=== PATIENT | male | born 1955 | race Asian ===

== ENCOUNTER 2016-09-23 19:04 | Emergency (ER) | payer OTHER ==
[2016-09-23] MEDS ORDERED: Acetaminophen TAB* 325 MG PO ONE (20:17)
[2016-09-23] MEDS ORDERED: NS 0.9% 1000 ML* 1,000 ML IV ONE (20:18)
[2016-09-23 20:45] LABS: Urine Bacteria Absent (Absent); Urine Bilirubin Negative (Negative); Urine Glucose Negative (Negative); Urine Nitrite Negative (Negative)
[2016-09-23 20:49] LABS: Hematocrit 37 % (42-52); Mean Corpuscular HGB Conc 35 g/dl (31-36); Mean Corpuscular Hemoglobin 34 pg (27-31); Mean Corpuscular Volume 96 fL (80-94); Mean Platelet Volume 7 um3 (7.4-10.4); Red Blood Count 3.87 10^6/ul (4.0-5.4); Red Cell Distribution Width 14 % (10.5-15); White Blood Count 5.9 10^3/ul (3.5-10.8)
[2016-09-23 21:05] LABS: Albumin 4.5 g/dL (3.2-5.2); BUN/Creatinine Ratio 13.8 (8-20); Calcium 10.1 mg/dL (8.6-10.3); EGFR African American 115.1 (>60); EGFR Non-African American 89.5 (>60); Globulin 3.2 g/dL (2-4); Potassium 3.9 mmol/L (3.5-5.0); Total Bilirubin 1.1 mg/dL (0.2-1.0); Total Protein 7.7 g/dL (6.4-8.9)
--- NOTE | 2016-09-23 21:09 | RAD ---
Indication: Cough. 2 views of the chest including dual energy PA views demonstrate no mediastinal shift. Heart is of normal size and configuration. Lung sanchez appear clear. IMPRESSION: No active cardiopulmonary disease is noted.
[2016-09-23] MEDS ORDERED: Azithromycin TAB* 250 MG PO ONE (22:13)
[2016-09-23] MEDS ORDERED: Ibuprofen TAB* 600 MG PO ONE (22:13)
--- NOTE | 2016-09-23 22:52 | ED ---
Destiny Bautista Salem, scribed for Carson Mckinnon on 09/23/16 at 2011 . Complex/Multi-Sys Presentation - HPI Summary HPI Summary: Patient is a 61 y/o male who presents to the ED with general malaise for 1 week. He reports SOB, dizziness, chest congestion, nausea, and pressure behind his ear since earlier today. He also reports fluctuating blood pressure and a cough that is productive with yellow sputum. He denies a pedal edema or PMHx of CAD. Pt reports renal calculi in April 2016. He is a former smoker, but denies COPD. - History Of Current Complaint Chief Complaint: EDUpperRespComplaint Time Seen by Provider: 09/23/16 19:55 Hx Obtained From: Patient Onset/Duration: Gradual Onset, Lasting Days Severity Currently: Moderate Severity Initially: Moderate Associated Signs And Symptoms: Positive: Dizziness, SOB, Cough, Nausea, Other - Chest congestion. Pressure behind his ear. - Allergies/Home Medications Allergies/Adverse Reactions: Allergies Allergy/AdvReac Type Severity Reaction Status Date / Time No Known Allergies Allergy Verified 09/23/16 19:22 PMH/Surg Hx/FS Hx/Imm Hx Respiratory History: Denies: Hx Chronic Obstructive Pulmonary Disease (COPD) Infectious Disease History: No Infectious Disease History: Denies: Traveled Outside the [place] in Last 30 Days - Family History Known Family History: Positive: Hypertension - Social History Alcohol Use: None Hx Substance Use: No Substance Use Type: Reports: None Hx Tobacco Use: Yes Smoking Status (MU): Former Smoker Review of Systems Positive: Shortness Of Breath, Cough Positive: Nausea Neurological: Other - Dizziness. All Other Systems Reviewed And Are Negative: Yes Physical Exam Triage Information Reviewed: Yes Vital Signs On Initial Exam: Initial Vitals Temp Pulse Resp BP Pulse Ox 98.9 F 93 16 138/68 97 09/23/16 19:05 09/23/16 19:05 09/23/16 19:05 09/23/16 19:05 09/23/16 19:05 Vital Signs Reviewed: Yes Appearance: Positive: Well-Appearing, No Pain Distress Skin: Positive: Warm, Skin Color Reflects Adequate Perfusion, Dry Head/Face: Positive: Normal Head/Face Inspection Eyes: Positive: EOMI, KADEEM Neck: Positive: Supple, Nontender Respiratory/Lung Sounds: Positive: Clear to Auscultation, Breath Sounds Present Cardiovascular: Positive: RRR, Pulses are Symmetrical in both Upper and Lower Extremities Abdomen Description: Positive: Nontender, Soft Bowel Sounds: Positive: Present Musculoskeletal: Positive: Normal, Strength/ROM Intact Neurological: Positive: Normal, Sensory/Motor Intact, Alert, Oriented to Person Place, Time Diagnostics - Vital Signs Vital Signs Temp Pulse Resp BP Pulse Ox 09/23/16 19:05 98.9 F 93 16 138/68 97 - Laboratory Result Diagrams: 09/23/16 20:41 09/23/16 20:41 Lab Statement: Any lab studies that have been ordered have been reviewed, and results considered in the medical decision making process. - Radiology CXR Radiology Interpretation Completed By: Radiologist - IMPRESSION: No active cardiopulmonary disease is noted. Re-Evaluation - Re-Evaluation First Eval Re-Evaluation Time: 22:13 Change: Improved Comment: Discussed results with pt and will prescribe Abx. He is agreeable to plan. Complex Multi-Symp Course/Dx - Diagnoses Provider Diagnoses: URI (upper respiratory infection), Bronchitis Discharge - Discharge Plan Condition: Stable Disposition: HOME Prescriptions: Azithromycin TAB* [Zithromax TAB (Z-TYLOR) 250 mg #6 tabs] 250 mg PO DAILY #4 tab Ibuprofen TAB* [Motrin TAB* 600 MG] 600 mg PO Q8H PRN #20 tab PRN Reason: Pain Patient Education Materials: Ibuprofen (By mouth), Azithromycin (By mouth), Upper Respiratory Infection (ED), Acute Bronchitis (ED) Referrals: Peter White MD [Primary Care Provider] - Additional Instructions: Follow up with PCP in 3 days. The documentation as recorded by the Destiny francis Salem accurately reflects the service I personally performed and the decisions made by Pratibha craig Emmanuel.
[2016-09-23 22:56] VITALS: BP 120/73
== END 2016-09-23 22:55 | disposition home or self-care (01) ==
LOC: ED 19:04
DX: J06.9 Acute upper respiratory infection, unspecified (principal); J40 Bronchitis, not specified as acute or chronic; Z87.891 Personal history of nicotine dependence
CPT/HCPCS: 36415; 71020; 80053; 81003; 81015; 83605; 83880; 84484; 85025; 85610; 85730; 87502; 93005; 96360; 99283; A9270-GY

== ENCOUNTER 2019-10-04 23:35 | Emergency (ER) | payer OTHER ==
--- OUTSIDE RECORDS SUMMARY | 2019-10-04 23:46 | XMS REPORT | Continuity of Care Document ---
:1955 External Reference #:[id number] Author Name Dewayne Allen, DO FAC (transmitted by agent of provider Rosy Coffey) Address [address] [place] [address] Care Team Providers Name Role Phone Libby Rosado MD - Pulmonary Care Team Information Assistant County Engineer Disease Yevgeniy Uribe MD - Cardiovascular Care Team Information Assistant County Engineer Disease Patient's Choice Care Team Information Assistant County Engineer Unavailable Problems Active Problems Provider Date Solitary nodule of lung ePter White M.D. Onset: 10/06/2015 Primary insomnia Peter White M.D. Onset: 10/06/2015 Disturbance in sleep behavior Libby Rosado MD Onset: 03/07/2016 Insomnia Peter White M.D. Onset: 03/08/2016 Ureteric stone Peter White M.D. Onset: 09/09/2016 Obstructive sleep apnea syndrome Peter White M.D. Onset: 09/09/2016 Chest pain Peter White M.D. Onset: 09/09/2016 Social History Type Date Description Comments Sex Unknown ETOH Use Denies alcohol use Recreational Drug Use Denies Drug Use Tobacco Use Start: Unknown Patient is a former End: Unknown smoker Tobacco Use Start: Unknown Light tobacco smoker for 15 yrs almost 10 (10 or fewer cigarettesa day, quit cigarettes/day) in 2009 for the second time Exercise Type/Frequency Exercises regularly Exercise Type/Frequency Walks daily 30 minutes Allergies, Adverse Reactions, Alerts Description No Known Drug Allergies Medications Active Medications SIG Qnty Indications Ordering Date Provider Metoprolol Tartrate 1 by mouth twice a 60tabs R00.0 Dewaynetavares Kenneyno, 10/01 day DO FACC 25mg Tablets Fish Oil not taking1 by Unknown 03/06/2016 1000mg mouth everyother Capsules day Vitamin C 1 tablet once or Unknown 1000mg twice per week. Tablets Calcium 500+D 1 by mouth once a Unknown day [id number] Tablets Mens Multivitamin Unknown Plus Tablets Immunizations Description No Information Available Vital Signs Date Vital Result Comment 10/02/2019 11:33am BP Systolic Sitting 130 mmHg Rue 110/80 hr 86 BP Diastolic Sitting 80 mmHg Rue 110/80 hr 86 BP Systolic Standing 120 mmHg Rue 110/80 hr 100 BP Diastolic Standing 72 mmHg Rue 110/80 hr 100 BP Systolic Lying Down 110 mmHg hr 112 BP Diastolic Lying Down 80 mmHg hr 112 O2 % BldC Oximetry 97 % at room air 09/30/2016 2:39pm Weight 145.12 lb Heart Rate 77 /min BP Systolic Sitting 106 mmHg BP Diastolic Sitting 66 mmHg Body Temperature 97.2 F O2 % BldC Oximetry 98 % Results Test Acquired Date Facility Test Result H/L Range Note Basic Metabolic 10/02/2019 [facility] Sodium 140 mmol/L Normal 135-[address] [place] [address] [phone] Potassium 3.9 mmol/L Normal 3.5-5.0 Chloride 108 mmol/L Normal 101-111 Co2 Carbon Dioxide 25 mmol/L Normal 22-32 Anion Gap 7 mmol/L Normal 2-11 Glucose 97 mg/dL Normal 70-100 Blood Urea Nitrogen 13 mg/dL Normal 6-24 Creatinine 0.81 mg/dL Normal 0.67-1.17 BUN/Creatinine Ratio 16.0 Normal 8-20 Calcium 9.6 mg/dL Normal 8.6-10.3 Egfr Non- 96.2 >60 Egfr 116.5 >60 1 CBC Auto 10/02/2019 [facility] White Blood 5.3 10^3/uL Normal 3.5-10.[address] [place] [address] [phone] Red Blood Count 3.83 10^6/uL Low 4.18-5.48 Hemoglobin 13.6 g/dL Low 14.0-18.0 Hematocrit 38 % Low 42-52 Mean Corpuscular Volume 99 fL High 80-94 Mean Corpuscular Hemoglobin 36 pg High 27-31 Mean Corpuscular HGB Conc 36 g/dL Normal 31-36 Red Cell Distribution Width 15 % Normal 10-15 Platelet Count 294 10^3/uL Normal 150-450 Mean Platelet Volume 6.8 fL Low 7.4-10.4 Abs Neutrophils 3.3 10^3/uL Normal 1.5-7.7 Abs Lymphocytes 1.6 10^3/uL Normal 1.0-4.8 Abs Monocytes 0.3 10^3/uL Normal 0-0.8 Abs Eosinophils 0.1 10^3/uL Normal 0-0.6 Abs Basophils 0.0 10^3/uL Normal 0-0.2 Abs Nucleated RBC 0.0 10^3/uL Granulocyte % 62.6 % Lymphocyte % 30.0 % Monocyte % 6.0 % Eosinophil % 1.0 % Basophil % 0.4 % Nucleated Red Blood Cells % 0.2 1 Because ethnic data is not always readily available, this report includes an eGFR for both -Americans and non- Americans. The National Kidney Disease Education Program (NKDEP) does not endorse the use of the MDRD equation for patients that are not between the ages of 18 and 70, are , have extremes of body size, muscle mass, or nutritional status, or are non- or non-. According to the National Kidney Foundation, irrespective of diagnosis, the stage of the disease is based on the level of kidney function: Stage Description GFR(mL/min/1.73 m(2)) 1 Kidney damage with normal or decreased GFR 90 2 Kidney damage with mild decrease in GFR 60-89 3 Moderate decrease in GFR 30-59 4 Severe decrease in GFR 15-29 5 Kidney failure <15 (or dialysis) Procedures Date Code Description Status 10/02/2019 54995 EKG Tracing & Interpretation Completed 10/20/2015 72941201 Colonoscopy Completed Medical Devices Description No Information Available Encounters Type Date Location Provider Dx Diagnosis Office Visit 10/02/2019 [facility] Dewayne Allen, R00.0 Tachycardia, 11:00a Of [employer] Escort DO FACC unspecified I63.9 Cerebral infarction, unspecified R42 Dizziness and giddiness G47.33 Obstructive sleep apnea (adult) (pediatric) R03.0 Elevated blood-pressure reading, w/o diagnosis of htn F17.201 Nicotine dependence, unspecified, in remission Assessments Date Code Description Provider 10/02/2019 R00.0 Tachycardia, unspecified Dewayne Allen, DO [facility] 10/02/2019 I63.9 Cerebral infarction, unspecified Dewayne Allen DO FACC 10/02/2019 R42 Dizziness and giddiness Dewayne Allen DO FAC 10/02/2019 G47.33 Obstructive sleep apnea (adult) Dewayne Allen DO [facility] (pediatric) 10/02/2019 R03.0 Elevated blood-pressure reading, without Dewayne Allen DO [facility] diagnosis of hypertension 10/02/2019 F17.201 Nicotine dependence, unspecified, in Dewayne Allen, DO [facility] remission Plan of Treatment Future Appointment(s):10/10/2019 2:30 pm - [facility]2019 2:40 pm - [facility]/11/2019 1:30 pm - Nurse Visit IC [facility]10/11/2019 1 :00 pm - Ica ECHO Schedule [facility]10/02/2019 - [facility] Tachycardia, unspecifiedNew Medication:Metoprolol Tartrate 25 mg - 1 by mouth twice a dayNew Orders:Holter Monitor, Scheduled: Echocardiogram, Ordered: 10/02/19Referral:Julio Cesar Shen III, MD, Internal MedicineFollow up:Try to set up a PCP appointment with Dr. Shen (or other [facility] IM doctor if not available) schedule studies samantha f/u after [id number] Cerebral infarction, [id number] Dizziness and uclqcrgydE87.33 Obstructive sleep apnea (adult) (pediatric)R03.0 Elevated blood-pressure reading, without diagnosis of juroihiztzcaB29.201 Nicotine dependence, unspecified, in remission Functional Status Description No Information Available Mental Status Description No Information Available Referrals Refer to Dr Reason for Referral Status Appt Date Julio Cesar Shen III, MD consider taking patient as PCP Sent [address] [place] [id number] [phone]
--- OUTSIDE RECORDS SUMMARY | 2019-10-04 23:46 | XMS REPORT | Continuity of Care Document ---
:1955 External Reference #:[id number] Author Name Dewayne Allen, DO FAC Address [address] [place] [address] Care Team Providers Name Role Phone Libby Rosado MD - Pulmonary Care Team Information Bariatric Coordinator [phone] Disease Yevgeniy Uribe MD - Cardiovascular Care Team Information Bariatric Coordinator Disease Patient's Choice Care Team Information Bariatric Coordinator Unavailable Problems Active Problems Provider Date Solitary nodule of lung Peter White M.D. Onset: 10/06/2015 Primary insomnia Peter [...] 1 by mouth twice a 60tabs R00.0 Dewayne Allen, 10/01 day DO FACC 25mg Tablets Fish Oil not taking1 by Unknown 03/06/2016 1000mg mouth everyother Capsules day Vitamin C 1 tablet once or Unknown 1000mg twice per week. Tablets Calcium 500+D 1 by mouth once a Unknown day [id number] Tablets Mens Multivitamin Unknown Plus Tablets Immunizations [...] O2 % BldC Oximetry 98 % Results Description No Information Available Procedures Date Code Description Status 10/02/2019 12921 EKG Tracing & Interpretation Completed 10/20/2015 [id number] Colonoscopy Completed Medical Devices Description No Information Available Encounters Description No Information Available Assessments Date Code Description Provider 10/02/2019 I10 Essential (primary) hypertension Dewayne Allen, DO [facility] 10/02/2019 R00.0 Tachycardia, unspecified Dewayne Allen, DO [facility] 10/02/2019 I63.9 Cerebral infarction, unspecified Dewayne Allen, DO [facility] 10/02/2019 R42 Dizziness and giddiness Dewayne Allen DO [facility] Plan of Treatment 10/02/2019 - Dewayne Allen, DO [facility]10 Essential (primary) hypertensionNew Orders:Echocardiogram, Ordered: 10/02/19Referral:Julio Cesar Shen III, MD, Internal MedicineFollow up:Try to set up a PCP appointment with Dr. Shen (or other [facility] IM doctor if not available) schedule studies samantha f/u after dblstktP24.0 Tachycardia, unspecifiedNew Medication:Metoprolol Tartrate 25 mg - 1 by mouth twice a dayNew Orders:Holter Monitor, Ordered: 10/02/19I63.9 Cerebral infarction, unspecifiedNew Xrays:CT Brain Wo, Ordered: 10/02/19R42 Dizziness and giddinessNew Labs:Basic Metabolic Panel, Ordered: 10/02/19CBC Auto Diff, Ordered: 10/02/19 Functional Status Description No Information Available Mental Status Description No Information Available Referrals Refer to Dr Reason for Referral Status Appt Date Julio Cesar Shen III, MD consider taking patient as PCP Created [address] [place] [id number] [phone]
[2019-10-05 00:22] VITALS: BP 140/93
--- NOTE | 2019-10-05 00:23 | ED ---
Hypertension - HPI Summary HPI Summary: This patient is a 64 year old M presenting to [facility] with a chief complaint of high blood pressure since three weeks ago. Pt has a blood pressure monitor but does not have diagnosed HTN. Pt has FHx of high blood pressure. On 09/16/19 pt felt very hot, lightheaded and discomfort in the chain. This lasted for two hour. When he measured his blood pressure it was very high. Pt took his wifes blood pressure medication from [facility] and the symptoms were resolved. Then on 09/29 the same thing occurred again and he took his wives medication again. Both times pt did not pass out. Then pt went to doctors and was placed on medication and his heart rate was reduced. Then at 1900 on 10/04/19 he was sitting down and he felt like his heart was beating rapidly. Pt has PMHx of vertigo 4-5 years ago and the cases lasted for 2-3 days. Patient denies chest pain, diaphoresis, and SOB. Pt has no history of heart problems or breathing problems as an adult. Pt quit smoking 20 years ago. Home Medications Medication Instructions Recorded Confirmed Type Azithromycin TAB* [Zithromax TAB 250 mg PO DAILY #4 tab 09/23/16 Rx (Z-TYLOR) 250 mg #6 tabs] Ibuprofen TAB* [Motrin TAB* 600 MG] 600 mg PO Q8H PRN #20 tab 09/23/16 Rx - History of Current Complaint Chief Complaint: EDHypertension Stated Complaint: HIGH BP/FAST HR PER PT Time Seen by Provider: 10/05/19 00:09 Hx Obtained From: Patient Onset/Duration: Started Hours Ago Timing: Intermittent, Lasting Hours Aggravating Factor(s): Nothing Alleviating Factor(s): Nothing Associated Signs & Symptoms: Dizziness, SOB - Allergies/Home Medications Allergies/Adverse Reactions: Allergies Allergy/AdvReac Type Severity Reaction Status Date / Time No Known Allergies Allergy Verified 09/23/16 19:22 Home Medications: Home Medications Azithromycin TAB* [Zithromax TAB (Z-TYLOR) 250 mg #6 tabs] 250 mg PO DAILY #4 tab 09/23/16 [Rx] Ibuprofen TAB* [Motrin TAB* 600 MG] 600 mg PO Q8H PRN #20 tab 09/23/16 [Rx] PMH/Surg Hx/FS Hx/Imm Hx Respiratory History: Denies: Hx Chronic Obstructive Pulmonary Disease (COPD) EENT History: Denies: Hx Deafness Infectious Disease History: No Infectious Disease History: Denies: Traveled Outside the [place] in Last 30 Days - Family History Known Family History: Positive: Hypertension - Social History Occupation: Employed Full-time Alcohol Use: None Hx Substance Use: No Substance Use Type: Reports: None Hx Tobacco Use: Yes Smoking Status (MU): Former Smoker Review of Systems Negative: Skin Diaphoresis Negative: Chest Pain Negative: Shortness Of Breath Neurological/Mental Status: Other - dizziness Negative: Syncope All Other Systems Reviewed And Are Negative: Yes Physical Exam - Summary Physical Exam Summary: Appearance: Well-appearing, Well-nourished, lying in bed comfortably Skin: Warm, dry, no obvious rash Eyes: sclera anicteric, no conjunctival pallor HENT: mucous membranes moist, pharynx appears normal Neck: Supple, nontender Respiratory: Clear to auscultation, no signs of respiratory distress Cardiovascular: Normal S1, S2. No murmurs. Normal distal pulses in tibial and radial bilaterally. Abdomen: Soft, nontender, normal active bowel sounds present Musculoskeletal: Normal, Strength/ROM Intact Neurological: A&Ox3, awake and alert, mentation is normal, speech is fluent and appropriate Psychiatric: affect is normal, does not appear anxious or depressed Triage Information Reviewed: Yes Vital Signs On Initial Exam: Initial Vitals Temp Pulse Resp BP Pulse Ox 98.3 F 92 20 168/92 97 10/04/19 23:36 10/04/19 23:36 10/04/19 23:36 10/04/19 23:36 10/04/19 23:36 Vital Signs Reviewed: Yes Procedures - Sedation Patient Received Moderate/Deep Sedation with Procedure: No Diagnostics - Vital Signs Vital Signs Temp Pulse Resp BP Pulse Ox 10/04/19 23:36 98.3 F 92 20 168/92 97 - Laboratory Lab Statement: Any lab studies that have been ordered have been reviewed, and results considered in the medical decision making process. - EKG 23:59 Cardiac Rate: NL EKG Rhythm: Sinus Rhythm Summary of EKG Findings: An EKG reveals NSR at 94 BPM, P waves, QRS complex, and T waves are within normal limits, T waves and intervals are normal, no ischemic changes. This is a normal EKG. This EKG was reviewed and interpreted by an ED Physician. Re-Evaluation - Re-Evaluation First Eval Re-Evaluation Time: 00:35 Comment: Discussed results and plan of care with pt. Hypertension Course/Dx - Course Course Of Treatment: This patient is a 64 year old M presenting to [facility] with a chief complaint of high blood pressure since three weeks ago. Pt has a blood pressure monitor but does not have diagnosed HTN. Pt has FHx of high blood pressure. On 09/16/19 pt felt very hot, lightheaded and discomfort in the chain. This lasted for two hour. When he measured his blood pressure it was very high. Pt took his wifes blood pressure medication from [facility] and the symptoms were resolved. Then on 09/30/19 the same thing occurred again and he took his wives medication again. Both times pt did not pass out. Then pt went to doctors and was placed on medication and his heart rate was reduced. Then at 1900 on 10/04/19 he was sitting down and he felt like his heart was beating rapidly. Pt has PMHx of vertigo 4-5 years ago and the cases lasted for 2-3 days. Patient denies chest pain, diaphoresis, and SOB. Pt has no history of heart problems or breathing problems as an adult. Pt quit smoking 20 years ago. Physical Exam Findings are normal. An EKG reveals NSR at 94 BPM, P waves, QRS complex, and T waves are within normal limits, T waves and intervals are normal, no ischemic changes. This is a normal EKG. This EKG was reviewed and interpreted by an ED Physician. The patient is agreeable with discharge. - Diagnoses Provider Diagnoses: Near syncope, Palpitations Discharge ED - Sign-Out/Discharge Documenting (check all that apply): Patient Departure - Discharge - Discharge Plan Condition: Good Disposition: HOME Patient Education Materials: Heart Palpitations (ED), Near Syncope (ED) Referrals: Julio Cesar Shen MD [Primary Care Provider] - Additional Instructions: I do not think that your blood pressure is causing these episodes of lightheadedness. I am not sure what is, but I do not hear or see anything that makes me concerned it is something dangerous. I would recommend checking back with Dr. Allen to see if would like to do further testing to evaluate your heart. Sometimes transient irregularities in the heart rhythm can cause these types of symptoms, and if Dr. Allen thinks that might be the case, he can order an ambulatory heart rhythm monitor to diagnose this condition or rule it out. - Billing Disposition and Condition Condition: GOOD Disposition: Home - Attestation Statements Document Initiated by Hui: Yes Documenting Scribe: Chantal Sandoval Provider For Whom Hui is Documenting (Include Credential): Rupert Álvarez MD Scribe Attestation: Chantal Bautista, scribed for Rupert Álvarez MD on 10/05/19 at 0430. Scribe Documentation Reviewed: Yes Provider Attestation: The documentation as recorded by the Chantal francis accurately reflects the service I personally performed and the decisions made by me, Rupert Álvarez MD Status of Hui Document: Viewed
== END 2019-10-05 00:46 | disposition home or self-care (01) ==
LOC: ED 23:35
DX: R00.2 Palpitations (principal); R55 Syncope and collapse; R42 Dizziness and giddiness; Z87.891 Personal history of nicotine dependence; Z82.49 Family history of ischemic heart disease and other diseases of the circulatory system
CPT/HCPCS: 93005; 99283

== ENCOUNTER 2019-10-06 10:13 | Emergency (ER) | payer OTHER ==
--- NOTE | 2019-10-06 10:42 | ED ---
Hypertension - HPI Summary HPI Summary: This pt is a 64 Y/O M presenting to [facility] with a CC of elevated blood pressure during the nights. The pt states that when his blood pressure is elevated he feels lightheaded. He states that he felt like he was going to pass out and he recorded his blood pressure which was 132/106. He states that he has an extensive family history of BP. The symptoms began on 09/16/2019 and was elevated at breakfast. He saw his doctor on 10/02/2019 following another 2 spikes in BP and was given metoprolol. He states that he does not feel good while taking the medications so he stopped taking them. He states that this morning he had a headache and was having difficulty walking for about 10 seconds. He was recently seen in the ED for HTN of 168 on 10/04/2019. He states that he has a PMHx of insomnia. He denies a SHx of tobacco usage or alcohol consumption. He states that he drinks tea excessively. - History of Current Complaint Chief Complaint: EDHypertension Stated Complaint: BP ISSUES/FEELS LIKE HE WAS GOING TO FAINT PER PT Time Seen by Provider: 10/06/19 10:15 Hx Obtained From: Patient Onset/Duration: Started Weeks Ago - 3 Timing: Intermittent - states happens at night, elevated when he wakes up Reported Blood Pressure Prior To Arrival: 132/106 Aggravating Factor(s): Nothing Alleviating Factor(s): Nothing Associated Signs & Symptoms: Negative - CP, fevers, chills, SOB, or N/V during, Headaches, Dizziness Related Hx: Similar Episode - 10/04/2019 - Allergies/Home Medications Allergies/Adverse Reactions: Allergies Allergy/AdvReac Type Severity Reaction Status Date / Time No Known Allergies Allergy Verified 10/06/19 10:23 Home Medications: Home Medications Ibuprofen TAB* [Motrin TAB* 600 MG] 600 mg PO Q8H PRN #20 tab 09/23/16 [Rx Confirmed 10/06/19] PMH/Surg Hx/FS Hx/Imm Hx Previously Healthy: Yes Endocrine/Hematology History: Denies: Hx Diabetes Cardiovascular History: Denies: Hx Deep Vein Thrombosis, Hx Hypertension Respiratory History: Denies: Hx Chronic Obstructive Pulmonary Disease (COPD) Sensory History: Denies: Hx Deafness - Cancer History Hx Chemotherapy: No Hx Radiation Therapy: No - Surgical History Surgical History: None - Immunization History Immunizations Up to Date: Yes Infectious Disease History: No Infectious Disease History: Denies: Traveled Outside the [place] in Last 30 Days - Family History Known Family History: Positive: Hypertension - Social History Occupation: Employed Full-time Lives: With Family Alcohol Use: None Hx Substance Use: No Substance Use Type: Reports: None Hx Tobacco Use: Yes Smoking Status (MU): Former Smoker Review of Systems Negative: Fever, Chills Positive: Other - elevated BP, 132/106. Negative: Chest Pain Negative: Shortness Of Breath Negative: Vomiting, Nausea Neurological/Mental Status: Other - dizziness/lightheadedness Positive: Headache All Other Systems Reviewed And Are Negative: Yes Physical Exam - Summary Physical Exam Summary: VITAL SIGNS: Reviewed. GENERAL: Patient is a well-developed and nourished male who is lying comfortable in the stretcher. Patient is not in any acute respiratory distress. HEAD AND FACE: No signs of trauma. No ecchymosis, hematomas or skull depressions. No sinus tenderness. EYES: PERRLA, EOMI x 2, No injected conjunctiva, no nystagmus. EARS: Hearing grossly intact. Ear canals and tympanic membranes are within normal limits. MOUTH: Oropharynx within normal limits. NECK: Supple, trachea is midline, no adenopathy, no JVD, no carotid bruit, no c- spine tenderness, neck with full ROM. CHEST: Symmetric, no tenderness at palpation. LUNGS: Clear to auscultation bilaterally. No wheezing or crackles. CVS: Tachycardic rate, normal rhythm, S1 and S2 present, no murmurs or gallops appreciated. ABDOMEN: Soft, non-tender. No signs of distention. No rebound, no guarding, and no masses palpated. Bowel sounds are normal. EXTREMITIES: FROM in all major joints, no edema, no cyanosis or clubbing. NEURO: Alert and oriented x 3. No acute neurological deficits. Speech is normal and follows commands. SKIN: Dry and warm. Triage Information Reviewed: Yes Vital Signs On Initial Exam: Initial Vitals Temp Pulse Resp BP Pulse Ox 98.9 F 119 16 121/94 98 10/06/19 10:18 10/06/19 10:18 10/06/19 10:18 10/06/19 10:18 10/06/19 10:18 Vital Signs Reviewed: Yes Procedures - Sedation Patient Received Moderate/Deep Sedation with Procedure: No Diagnostics - Vital Signs Vital Signs Temp Pulse Resp BP Pulse Ox 10/06/19 10:32 143/92 10/06/19 10:18 98.9 F 119 16 121/94 98 - Laboratory Result Diagrams: 10/06/19 10:48 10/06/19 10:48 Lab Statement: Any lab studies that have been ordered have been reviewed, and results considered in the medical decision making process. - Radiology CXR Radiology Interpretation Completed By: Radiologist Summary of Radiographic Findings: No acute cardiopulmonary process by radiograph. ED physician has reviewed this report. - EKG 0957 Cardiac Rate: Tachycardia - 101 BPM EKG Rhythm: Sinus Tachycardia ST Segment: Normal Ectopy: None Summary of EKG Findings: An EKG at 0957 reveals sinus tachycardia at 101 BPM, nml axis, nml intervals. No STEMI. No acute changes. Dr. Keyes has reviewed and interpreted this EKG at 0957 10/06/2019. Re-Evaluation - Re-Evaluation First Eval Re-Evaluation Time: 12:49 Change: Improved Comment: Pt is able to walk without increase in his heart rate. He states that he feels better and is aggreable to follow up with his PCP on monday10/07/2019 for further care and tests. Hypertension Course/Dx - Course Course Of Treatment: This pt is a 64 Y/O M presenting to [facility] with a CC of elevated blood pressure during the nights. The pt states that when his blood pressure is elevated he feels lightheaded. He states that he felt like he was going to pass out and he recorded his blood pressure which was 132/106. He states that he has an extensive family history of BP. The symptoms began on 09/16 and was elevated at breakfast. He saw his doctor on 10/02/2019 following another 2 spikes in BP and was given metoprolol. He has a FHx of HTN. His PE found that he was tachycardic. An EKG at 0957 reveals sinus tachycardia at 101 BPM, nml axis, nml intervals. No STEMI. No acute changes. He has no acute abnormalites in his labratory values. CXR: No acute cardiopulmonary process by radiograph. He was walked successfully without a major spike in his HR. He will be discharged home with a Dx of tachycardia and HTN. - Diagnoses Provider Diagnoses: Tachycardia, HTN (hypertension) Discharge ED - Sign-Out/Discharge Documenting (check all that apply): Patient Departure - discharge - Discharge Plan Condition: Good Disposition: HOME Patient Education Materials: Chronic Hypertension (ED), Tachycardia (ED) Referrals: Julio Cesar Shen MD [Primary Care Provider] - 10/07/19 Additional Instructions: PLEASE FOLLOW UP WITH YOUR PRIMARY CARE PHYSICIAN ON Monday10/07/2019. RETURN TO THE EMERGENCY DEPARTMENT FOR ANY NEW OR WORSENING SYMPTOMS. - Billing Disposition and Condition Condition: GOOD Disposition: Home - Attestation Statements Document Initiated by Hui: Yes Documenting Scribe: Chandler Barragan Provider For Whom Hui is Documenting (Include Credential): Nura Keyes MD Scribe Attestation: Chandler Bautista, scribed for Nura Keyes MD on 10/06/19 at 1542. Scribe Documentation Reviewed: Yes Provider Attestation: The documentation as recorded by the Chandler francis accurately reflects the service I personally performed and the decisions made by Nura craig MD Status of Scribe Document: Viewed
[2019-10-06] MEDS ORDERED: NS 0.9% 1000 ML** 1,000 ML IV ONE (10:45)
[2019-10-06 11:02] LABS: ABS Lymphocytes 1.4 10^3/ul (1.0-4.8); ABS Monocytes 0.3 10^3/ul (0-0.8); ABS Neutrophils 3.2 10^3/ul (1.5-7.7); Eosinophil % 0.8 %; Hematocrit 36 % (42-52); Lymphocyte % 27.8 %; Mean Corpuscular HGB Conc 36 g/dL (31-36); Mean Corpuscular Hemoglobin 35 pg (27-31); Mean Corpuscular Volume 97 fL (80-94); Mean Platelet Volume 6.9 fL (7.4-10.4); Platelet Count 254 10^3/uL (150-450); Red Blood Count 3.71 10^6 /uL (4.18-5.48); Red Cell Distribution Width 15 % (10-15)
[2019-10-06 11:22] LABS: Albumin 4.2 g/dL (3.2-5.2); Albumin/Globulin Ratio 1.6 (1-3); BUN/Creatinine Ratio 13.4 (8-20); EGFR African American 114.8 (>60); EGFR Non-African American 94.9 (>60); Globulin 2.6 g/dL (2-4); Potassium 3.5 mmol/L (3.5-5.0); Total Protein 6.8 g/dL (6.4-8.9)
[2019-10-06 12:50] VITALS: BP 147/81
[2019-10-06 13:05] LABS: Urine Appearance Clear; Urine Bilirubin Negative (Negative); Urine Blood Negative (Negative); Urine Color Colorless; Urine Glucose Negative (Negative); Urine Ketones Negative (Negative); Urine Nitrite Negative (Negative); Urine Protein Negative (Negative); Urine Specific Gravity 1.002 (1.010-1.030); Urine Urobilinogen Negative (Negative)
[2019-10-06 13:37] LABS: HIV 4th Generation Nonreactive (Nonreactive)
[2019-10-06 13:47] LABS: TSH (Thyroid Stimulating Horm) 0.98 mcIU/mL (0.34-5.60)
== END 2019-10-06 12:58 | disposition home or self-care (01) ==
LOC: ED 10:13
DX: R00.0 Tachycardia, unspecified (principal); I10 Essential (primary) hypertension; R51 Headache; R03.0 Elevated blood-pressure reading, without diagnosis of hypertension; G47.00 Insomnia, unspecified
CPT/HCPCS: 36415; 71045; 80053; 81003; 84443; 84484; 85025; 85379; 87389; 93005; 99283